=== PATIENT | female | born 1975 | race Hispanic/Latino ===

== ENCOUNTER 2016-09-19 05:59 | Outpatient (CLI) | payer BC ==
[2016-09-19 06:42] LABS: ALT (SGPT) 11 U/L (0-55); AST (SGOT) 8 U/L (5-34); Alkaline Phosphatase 104 U/L (40-150); Anion Gap 14 mmol/L (10-20); BUN (Urea Nitrogen) 11 mg/dL (7.0-18.7); Bilirubin, Total 0.5 mg/dL (0.2-1.2); Calc. Creatinine Clearance 0 mL/min (70-130); Calcium 9.7 mg/dL (7.8-10.44); Carbon Dioxide 24 mmol/L (22-29); Chloride 102 mmol/L (98-107); Estimated GFR-MDRD 66; Globulin 3.8 g/dL (2.4-3.5); LDL Cholesterol, Calculated 112 mg/dL; Protein, Total 8.1 g/dL (6.0-8.3)
[2016-09-19 07:20] LABS: Free T3 2.86 pg/mL (1.71-3.71)
[2016-09-19 07:23] LABS: Hematocrit 44.3 % (36.0-47.0); Mean Platelet Volume 11.4 fL (7.4-10.4); Red Blood Cell (RBC) Count 4.97 mill/uL (4.20-5.40); White Blood Cell (WBC) Count 7.4 thou/uL (4.8-10.8)
[2016-09-19 07:24] LABS: Neutrophil 69 % (42-75)
[2016-09-21 08:23] LABS: Thyroglobulin Antibody by RIA Less than 1.0 IU/mL (0.0-0.9)
== END 2016-09-19 06:00 | disposition home or self-care (01) ==
LOC: NAV LAB 05:59
PROVIDERS: ATTEND Family Medicine
DX: R63.4 Abnormal weight loss (principal); E11.65 Type 2 diabetes mellitus with hyperglycemia; R53.83 Other fatigue
CPT/HCPCS: 36415; 80053; 80061; 82306; 82607; 84439; 84443; 84481; 84482; 85007; 85027; 85652; 86376; 86800

== ENCOUNTER 2016-09-26 15:36 | Outpatient (CLI) | payer BC ==
[2016-09-26 16:06] LABS: Hemoglobin A1c 13.7 % (4.0-6.0)
[2016-09-26 16:47] LABS: Band 1 % (5-11); Hematocrit 35.5 % (36.0-47.0); Mean Platelet Volume 11.7 fL (7.4-10.4); Neutrophil 55 % (42-75); White Blood Cell (WBC) Count 5.7 thou/uL (4.8-10.8)
[2016-09-26 18:01] LABS: Bilirubin Negative (Negative); Blood, Urine Small (Negative); Glucose, Urine (Dipstick) 250 mg/dL (Negative); Ketone, Urine Negative (Negative); Nitrite Negative (Negative); Protein, Urine (Dipstick) Negative (Neg-Trace); Urobilinogen 0.2 mg/dL (0.2-1.0)
[2016-09-26 18:25] LABS: Bacteria/HPF Rare-Few HPF (None Seen); RBC/HPF 0-3 HPF (0-3); WBC/HPF 0-3 HPF (0-3)
== END 2016-09-26 15:37 | disposition home or self-care (01) ==
LOC: NAV LAB 15:36
PROVIDERS: ATTEND Family Medicine
DX: E11.65 Type 2 diabetes mellitus with hyperglycemia (principal)
CPT/HCPCS: 81001; 82010; 83036; 83930; 85007; 85027

== ENCOUNTER 2016-10-01 16:13 | Outpatient (CLI) | payer BC | END 2016-10-01 16:14 | disposition home or self-care (01) | LOC: NAV LAB 16:13 | PROVIDERS: ATTEND Family Medicine | DX: E11.65 Type 2 diabetes mellitus with hyperglycemia (principal) | CPT/HCPCS: 82010; 83930 ==

== ENCOUNTER 2018-08-23 23:49 | Emergency (ER) | payer BC ==
[2018-08-23] MEDS ORDERED: Ondansetron PF 4 MG/2 ML Vial ONE (23:59)
[2018-08-23] MEDS ORDERED: Sodium Chloride 0.9% 1,000 ML ONE (23:59)
[2018-08-24 00:25] LABS: #Basophils 0.1 thou/uL (0.0-0.2); #Eosinphils 0.3 thou/uL (0.0-0.7); #Lymphocytes 4.5 thou/uL (1.20-3.40); #Monocytes 0.7 thou/uL (0.11-0.59); #Neutrophils 4.4 thou/uL (1.40-6.50); %Basophils 1.2 % (0.0-1.0); %Eosinophils 2.9 % (0.0-10.0); %Lymphocytes 45.4 % (21.0-51.0); %Monocytes 6.8 % (0.0-10.0); %Neutrophils 43.7 % (42.0-75.0); Hemoglobin 14.9 g/dL (12.0-16.0); Mean Corpuscular HGB CONC 34.2 g/dL (32.0-36.0); Mean Corpuscular Hemoglobin 29.7 pg (27.0-31.0); Mean Corpuscular Volume 86.9 fL (78.0-98.0); Mean Platelet Volume 12.6 fL (7.4-10.4); PLT Morphology Comment Appears Adequate; Platelet Count 244 thou/uL (130-400); RBC Distribution Width 10.9 % (11.5-14.5); RBC Morphology Normal
[2018-08-24 00:26] LABS: BHCG - Serum Negative (NEGATIVE); Pregs Control Bar Appear? YES (CONTROL BAR)
[2018-08-24 00:29] LABS: ALT (SGPT) 12 U/L (8-55); AST (SGOT) 10 U/L (5-34); Albumin 4.5 g/dL (3.5-5.0); Alkaline Phosphatase 104 U/L (40-150); Anion Gap 18 mmol/L (10-20); BUN (Urea Nitrogen) 10 mg/dL (7.0-18.7); Bilirubin, Total 0.2 mg/dL (0.2-1.2); Calc. Creatinine Clearance 0 mL/min (70-130); Calcium 10.4 mg/dL (7.8-10.44); Carbon Dioxide 23 mmol/L (22-29); Chloride 98 mmol/L (98-107); Estimated GFR-MDRD 69; Globulin 3.6 g/dL (2.4-3.5); Glucose 384 mg/dL (70-105); Lipase 65 U/L (8-78); Potassium 3.8 mmol/L (3.5-5.1); Protein, Total 8.1 g/dL (6.0-8.3); Sodium 135 mmol/L (136-145)
[2018-08-24 00:48] LABS: MDiff Complete? YES; Manual Diff?? NO
[2018-08-24 01:18] LABS: Bilirubin Small (Negative); Blood, Urine Negative (Negative); Clarity Clear (Clear); Glucose, Urine (Dipstick) 500 mg/dL (Negative); Leukocyte Negative (Negative); Nitrite Negative (Negative); Protein, Urine (Dipstick) 100 mg/dL (Neg-Trace)
[2018-08-24 01:46] LABS: Bacteria/HPF None Seen HPF (None Seen); RBC/HPF None Seen HPF (0-3); Squamous Epithelial 0-3 HPF (0-3); WBC/HPF None Seen HPF (0-3)
== END 2018-08-24 02:09 | disposition home or self-care (01) ==
LOC: NAV ERS 23:49
DX: R10.9 Unspecified abdominal pain (principal); E11.9 Type 2 diabetes mellitus without complications; F32.9 Major depressive disorder, single episode, unspecified; Z79.84 Long term (current) use of oral hypoglycemic drugs
CPT/HCPCS: 36415; 36416; 51701; 81003; 81015; 83690; 84703; 85025; 96361; 96372; 96374; 96375; A4353; J2270; J2405; J7050

== ENCOUNTER 2022-04-23 20:33 | Emergency (ER) | payer BC ==
[2022-04-23 21:09] LABS: Bilirubin Negative (Negative); Blood, Urine Negative (Negative); Clarity Clear (Clear); Glucose, Urine (Dipstick) >=1000 mg/dL (Negative); Ketone, Urine Negative (Negative); Leukocyte Negative (Negative); Nitrite Negative (Negative); Protein, Urine (Dipstick) Negative (Neg-Trace); Specific Gravity, Urine 1.015 (1.005-1.030); Urobilinogen 0.2 mg/dL (Less than 2); pH, Urine 6.5 (5.0-9.0)
[2022-04-23 21:13] LABS: #Basophils 0.1 thou/uL (0.0-0.2); #Eosinphils 0.2 thou/uL (0.0-0.7); #Lymphocytes 2.8 thou/uL (1.20-3.40); #Monocytes 0.7 thou/uL (0.11-0.59); #Neutrophils 4.7 thou/uL (1.40-6.50); %Basophils 0.9 % (0.0-1.0); %Eosinophils 2.8 % (0.0-10.0); %Lymphocytes 32.6 % (21.0-51.0); %Monocytes 8.4 % (0.0-10.0); %Neutrophils 55.3 % (42.0-75.0); Hemoglobin 11.9 g/dL (12.0-16.0); Mean Corpuscular Hemoglobin 27.8 pg (27.0-31.0); Mean Corpuscular Volume 89.6 fL (78.0-98.0); Mean Platelet Volume 12.9 fL (7.4-10.4); Platelet Count 218 thou/uL (130-400); RBC Distribution Width 13.5 % (11.5-14.5); White Blood Cell (WBC) Count 8.5 thou/uL (4.8-10.8)
[2022-04-23 21:20] LABS: ALT (SGPT) 14 U/L (8-55); AST (SGOT) 13 U/L (5-34); Alkaline Phosphatase 69 U/L (40-110); Anion Gap 15 mmol/L (10-20); BUN (Urea Nitrogen) 16 mg/dL (7.0-18.7); Bilirubin, Total 0.2 mg/dL (0.2-1.2); Calc. Creatinine Clearance 0 mL/min (70-130); Calcium 9.4 mg/dL (7.8-10.44); Carbon Dioxide 24 mmol/L (22-29); Chloride 102 mmol/L (98-107); Estimated GFR 103; Globulin 3.4 g/dL (2.4-3.5); Glucose 131 mg/dL (70-105); Potassium 3.9 mmol/L (3.5-5.1); Protein, Total 7.4 g/dL (6.0-8.3); Sodium 137 mmol/L (136-145)
[2022-04-23 21:25] LABS: Microcytosis SLIGHT = 6-15 cells (100X) (0-5/hpf)
[2022-04-23 21:26] LABS: Anisocytosis SLIGHT = 6-15 cells (100X) (0-5/hpf); Platelet Morphology Comment Appears Adequate
== END 2022-04-23 22:02 | disposition home or self-care (01) ==
LOC: NAV ERS 20:33
DX: R10.32 Left lower quadrant pain (principal); E11.9 Type 2 diabetes mellitus without complications; Z79.84 Long term (current) use of oral hypoglycemic drugs
CPT/HCPCS: 80053; 81003; 85025

== ENCOUNTER 2022-04-24 04:39 | Emergency (ER) | payer BC ==
[2022-04-24] MEDS ORDERED: Ondansetron PF 4 MG/2 ML Vial ONE (04:57)
[2022-04-24] MEDS ORDERED: Sodium Chloride 0.9% 1,000 ML ONE (05:08)
[2022-04-24] MEDS ORDERED: Morphine 4 MG/ML VIAL ONE (05:08)
[2022-04-24 05:20] LABS: BHCG - Serum Negative (NEGATIVE); Pregs Control Bar Appear? YES (CONTROL BAR)
[2022-04-24] MEDS ORDERED: Iopamidol 370 76% 100 ML VIAL ONE (09:00)
== END 2022-04-24 07:55 | disposition short-term general hospital (02) ==
LOC: NAV ERS 04:39
DX: R10.32 Left lower quadrant pain (principal); E11.9 Type 2 diabetes mellitus without complications; Z79.84 Long term (current) use of oral hypoglycemic drugs
CPT/HCPCS: 74177; 80053; 81003; 84703; 85025; 96361; 96374; 96375; 99284; J2270; J2405; J7050; Q9967

== ENCOUNTER 2023-06-05 18:21 | Emergency (ER) | payer BC, SELFPAY ==
[2023-06-05 18:48] LABS: #Basophils 0.1 thou/uL (0.0-0.2); #Eosinphils 0.1 thou/uL (0.0-0.7); #Lymphocytes 1.8 thou/uL (1.20-3.40); #Monocytes 0.6 thou/uL (0.11-0.59); #Neutrophils 7.2 thou/uL (1.40-6.50); %Basophils 0.6 % (0.0-1.0); %Eosinophils 1.2 % (0.0-10.0); %Lymphocytes 18.5 % (21.0-51.0); %Monocytes 6.2 % (0.0-10.0); %Neutrophils 73.5 % (42.0-75.0); Hematocrit 40.2 % (36.0-47.0); Hemoglobin 13.4 g/dL (12.0-16.0); Mean Corpuscular HGB CONC 33.2 g/dL (32.0-36.0); Mean Corpuscular Hemoglobin 30.4 pg (27.0-31.0); Mean Corpuscular Volume 91.4 fl (78.0-98.0); Mean Platelet Volume 11.3 fL (7.4-10.4); Platelet Count 233 10x3/uL (130-400); RBC Distribution Width 12.1 % (11.5-14.5); White Blood Cell (WBC) Count 9.8 10x3/uL (4.8-10.8)
[2023-06-05] MEDS ORDERED: Pantoprazole 40 MG VIAL ONE (18:48)
[2023-06-05] MEDS ORDERED: Promethazine HCl 25 MG/ML VIAL ONE (18:48)
[2023-06-05] MEDS ORDERED: Sodium Chloride 0.9% 1,000 ML ONE (18:48)
[2023-06-05 19:07] LABS: ALT (SGPT) 15 U/L (8-55); AST (SGOT) 16 U/L (5-34); Albumin 4.2 g/dL (3.5-5.0); Alkaline Phosphatase 79 U/L (40-110); Anion Gap 14 mmol/L (10-20); BUN (Urea Nitrogen) 15 mg/dL (7.0-18.7); Bilirubin, Total 0.3 mg/dL (0.2-1.2); Calc. Creatinine Clearance 0 mL/min (70-130); Calcium 9.9 mg/dL (7.8-10.44); Carbon Dioxide 25 mmol/L (22-29); Chloride 103 mmol/L (98-107); Estimated GFR 73; Globulin 3.6 g/dL (2.4-3.5); Glucose 223 mg/dL (70-105); Lipase 27 U/L (8-78); Protein, Total 7.8 g/dL (6.0-8.3); Sodium 138 mmol/L (136-145)
[2023-06-05 19:54] LABS: Bilirubin Negative (Negative); Blood, Urine Negative (Negative); Clarity Clear (Clear); Glucose, Urine (Dipstick) Negative (Negative); Ketone, Urine Negative (Negative); Leukocyte Negative (Negative); Nitrite Negative (Negative); Protein, Urine (Dipstick) Negative (Neg-Trace); Specific Gravity, Urine 1.008 (1.002-1.036); Urobilinogen 0.2 mg/dL (Less than 2)
[2023-06-05 19:55] LABS: CAUTI Indications for Culture Dysuria,urgency,freq
[2023-06-05 19:57] LABS: Bacteria/HPF Rare-Few HPF (None Seen); RBC/HPF 0-3 HPF (0-3); Squamous Epithelial 0-3 HPF (0-3); Urine Culture Reflex No No; WBC/HPF None Seen HPF (0-3)
== END 2023-06-05 20:22 | disposition home or self-care (01) ==
LOC: NAV ERS 18:21
DX: R11.2 Nausea with vomiting, unspecified (principal); E11.9 Type 2 diabetes mellitus without complications; Z79.84 Long term (current) use of oral hypoglycemic drugs; Z79.4 Long term (current) use of insulin; Z79.899 Other long term (current) drug therapy
CPT/HCPCS: 36415; 36416; 80053; 81001; 83690; 85025; 96365; 96375; C9113; J2550; J7050

== ENCOUNTER 2023-10-06 15:28 | Emergency (ER) | payer BC, SELFPAY ==
[2023-10-06] MEDS ORDERED: Sodium Chloride 0.9% 1,000 ML ONE (15:51)
[2023-10-06] MEDS ORDERED: Ondansetron PF 4 MG/2 ML Vial ONE (15:51)
[2023-10-06 16:07] LABS: #Basophils 0.1 thou/uL (0.0-0.2); #Eosinphils 0.3 thou/uL (0.0-0.7); #Lymphocytes 4.1 thou/uL (1.20-3.40); #Monocytes 0.6 thou/uL (0.11-0.59); #Neutrophils 5.9 thou/uL (1.40-6.50); %Eosinophils 2.9 % (0.0-10.0); %Monocytes 5.7 % (0.0-10.0); %Neutrophils 53.5 % (42.0-75.0); Hemoglobin 14.8 g/dL (12.0-16.0); Mean Corpuscular HGB CONC 33.7 g/dL (32.0-36.0); Mean Corpuscular Hemoglobin 30.5 pg (27.0-31.0); Mean Corpuscular Volume 90.4 fl (78.0-98.0); Mean Platelet Volume 11.7 fL (7.4-10.4); Platelet Count 281 10x3/uL (130-400); RBC Distribution Width 11.7 % (11.5-14.5); Red Blood Cell (RBC) Count 4.86 mill/uL (4.20-5.40); White Blood Cell (WBC) Count 11.1 10x3/uL (4.8-10.8)
[2023-10-06 16:18] LABS: ALT (SGPT) 18 U/L (8-55); AST (SGOT) 16 U/L (5-34); Albumin 4.7 g/dL (3.5-5.0); Alkaline Phosphatase 75 U/L (40-110); Anion Gap 16 mmol/L (10-20); BUN (Urea Nitrogen) 15 mg/dL (7.0-18.7); Bilirubin, Total 0.2 mg/dL (0.2-1.2); Calc. Creatinine Clearance 0 mL/min (70-130); Calcium 10.6 mg/dL (7.8-10.44); Carbon Dioxide 24 mmol/L (22-29); Chloride 102 mmol/L (98-107); Estimated GFR 74; Globulin 3.9 g/dL (2.4-3.5); Glucose 111 mg/dL (70-105); Lipase 81 U/L (8-78); Potassium 4.3 mmol/L (3.5-5.1); Protein, Total 8.6 g/dL (6.0-8.3); Sodium 138 mmol/L (136-145)
[2023-10-06 16:38] LABS: Bilirubin Negative (Negative); Blood, Urine Negative (Negative); Clarity Clear (Clear); Glucose, Urine (Dipstick) 100 mg/dL (Negative); Ketone, Urine Trace mg/dL (Negative); Leukocyte Negative (Negative); Nitrite Negative (Negative); Protein, Urine (Dipstick) 30 mg/dL (Neg-Trace); Urobilinogen 0.2 mg/dL (Less than 2); pH, Urine 5.5 (5.0-9.0)
[2023-10-06 16:42] LABS: Bacteria/HPF 1+ HPF (None Seen); CAUTI Indications for Culture Pelvic or flank pain; RBC/HPF None Seen HPF (0-3); Specific Gravity, Urine 1.024 (1.002-1.036); Squamous Epithelial 21-50 HPF (0-3); WBC/HPF None Seen HPF (0-3)
[2023-10-06 16:43] LABS: Urine Culture Reflex No No
== END 2023-10-06 17:22 | disposition home or self-care (01) ==
LOC: NAV ERS 15:28
DX: R10.33 Periumbilical pain (principal); R11.2 Nausea with vomiting, unspecified; E11.9 Type 2 diabetes mellitus without complications; I10 Essential (primary) hypertension; Z79.84 Long term (current) use of oral hypoglycemic drugs; Z79.899 Other long term (current) drug therapy
CPT/HCPCS: 80053; 81001; 83690; 85025; 93005; 96361; 96374; J2405; J7050